=== PATIENT | female | born 1955 | race Caucasian/White ===

== ENCOUNTER 2018-08-10 16:57 | Emergency (ER) | payer SELFPAY ==
[~2018-08-10] VITALS: Ht 157.4 cm; Wt 113.4 kg
[2018-08-10] MEDS ORDERED: SEPTDS PO (17:14)
[2018-08-10] MEDS ORDERED: ZOFRAN4 MG PO (17:14)
[2018-08-10] MEDS ORDERED: NAPROSYN500 MG PO (17:14)
[2018-08-10] MEDS ORDERED: KEFLEX500 M1 PO (17:14)
== END 2018-08-10 17:35 | disposition home or self-care (01) ==
LOC: ED 16:57
DX: L02.413 Cutaneous abscess of right upper limb (principal); R03.0 Elevated blood-pressure reading, without diagnosis of hypertension